=== PATIENT | female | born 1955 ===

== ENCOUNTER 2023-11-18 05:55 | Day surgery (SDC) | payer OTHER ==
[~2023-11-18 05:55] MED LIST: ETODOLAC 400 MG; PREVACID15 M1; SIMVASTATIN 20MG; TENORMIN50 M1; VIT D; ZESTRIL40 M1; [UNRECOGNIZED DRUG - OTHER]
[2023-11-18] MEDS ORDERED: CEFAZOLIN SODIUM 1,000 MG VIAL ONE (11:49)
[2023-11-18] MEDS ORDERED: VANCOMYCIN HCL 1,000 MG VIAL ONE (11:49)
[2023-11-18] MEDS ORDERED: CEFAZOLIN SODIUM 1,000 MG VIAL IV ONE (12:30)
[2023-11-18] MEDS ORDERED: VANCOMYCIN HCL 1,000 MG VIAL IR ONE (12:30)
[2023-11-18] MEDS ORDERED: MACROBID 100 M100 MG PO (12:43)
== END 2023-11-18 17:05 | disposition home or self-care (01) ==
LOC: CIR.AMB 05:55 → EDSTATUS 10:30 → CIR.AMB 10:30
PROVIDERS: ATTEND Obstetrics & Gynecology Gynecology
DX: N81.11 Cystocele, midline (principal); Z88.2 Allergy status to sulfonamides; Z88.1 Allergy status to other antibiotic agents; I10 Essential (primary) hypertension